=== PATIENT | female | born 1930 | race Caucasian/White ===

== ENCOUNTER 2018-03-30 12:53 | Outpatient (CLI) | payer MEDICARE ==
--- NOTE | 2018-03-30 14:11 | MRI ---
MRI LUMBAR SPINE WITHOUT CONTRAST: Date: 03/30/18 Multiplanar, multisequential imaging of lumbar spine obtained. INDICATION: Lumbar spine stenosis. Low back pain. FINDINGS: Lumbar vertebra maintain normal height. There are moderate to severe degenerative disc changes at all levels. There is loss of disc space at all levels of the lumbar spine, although the L5-S1 disc is re latively well preserved. There is a mild anterolisthesis at L4-5. L5 is mildly transitional. At T12-L1, mild diffuse disc bulge flattens the thecal sac without significant central canal stenosis . At L1-2, broad based disc bulge flattens the thecal sac. Mild facet arthrosis. Mild central canal and foraminal stenosis. At L2-3, diffuse disc bulge flattens the thecal sac. Mild to moderate facet hypertrophy. Mild central canal stenosis. Mild right foraminal encroachment. At L3-4, mild diffuse disc bulge with slight anterolisthesis. Facet hypertrophy. Mild to moderate argelia tral canal stenosis. At L4-5, there is mild anterolisthesis. There is a broad based disc protrusion at this level centrall y compressing the thecal sac. Facet and ligamentous hypertrophy is prominent. These changes result in severe central canal stenosis. Bilateral foraminal stenosis. At L5-S1, mild disc bulge without protrusion. No significant central canal or foraminal stenosis. IMPRESSION: 1. Degenerative disc changes at all levels. Findings are most prominent at L4-5 where there is slig ht anterolisthesis with broad based disc protrusion and severe central canal stenosis. Bilateral fora phill stenosis, most prominent on the left. 2. Central canal stenosis at L1-2, L2-3, and L3-4 levels as described above. POS: [id number]
== END 2018-03-30 12:54 | disposition home or self-care (01) ==
LOC: TBSIIMAG 12:53
PROVIDERS: ATTEND Neurological Surgery
DX: M48.061 Spinal stenosis, lumbar region without neurogenic claudication (principal); M47.896 Other spondylosis, lumbar region; M51.26 Other intervertebral disc displacement, lumbar region; M99.83 Other biomechanical lesions of lumbar region; M43.16 Spondylolisthesis, lumbar region
CPT/HCPCS: 72148